=== PATIENT | female | born 1995 | race Caucasian/White ===

== ENCOUNTER 2017-07-31 16:03 | Outpatient (CLI) | payer OTHER ==
[~2017-07-31] VITALS: Ht 165.1 cm; Wt 94.9 kg
[~2017-07-31 16:03] MED LIST: CALC300T34
[2017-07-31 16:34] LABS: URINE BLOOD (Dip) POC Negative (NEGATIVE)
[2017-07-31 16:41] VITALS: BP 130/75; PULSE 93; RESP 18; Ht 165.1 cm; Wt 94.9 kg
[2017-07-31] MEDS ORDERED: PNV11TAB PO (16:42)
--- NOTE | 2017-07-31 17:50 | RADRPT ---
PROCEDURE: US biophysical profile. CLINICAL INDICATION: induced hypertension. TECHNIQUE: Multiple sonographic images of the uterus were obtained. The images were revi ewed on a PACS workstation. COMPARISON: No prior studies are available for comparison. FINDINGS: There is a single live intrauterine gestation. heart rate is 144 beats per minute. The position is cephalic. The placenta is fundal posterior grade II with no abruption or previa. The DAWSON is 14.4 cm. (Normal = 5-20 cm.) Breathing Movement: 2 Gross Body Movement: 2 Tone: 2 Qualitative Amniotic Fluid Volume: 2 TOTAL: 8 IMPRESSION: 1. The biophysical score is 8/8. RPTAT: QQ .Darinel Tidwell MD, MD Date Time Electronically viewed and signed by .Darinel Tidwell MD, on 07/31/2017 17:49 .R/
[2017-07-31 18:05] LABS: ADD UMIC YES; UR ASCORBIC ACID NEGATIVE (NEGATIVE); UR BACTERIA FEW /HPF (NONE SEEN); UR BILIRUBIN (Dip) NEGATIVE (NEGATIVE); UR BLOOD (Dip) NEGATIVE (NEGATIVE); UR CLARITY CLEAR (CLEAR); UR COLOR STRAW (YELLOW); UR GLUCOSE (Dip) NEGATIVE (NEGATIVE); UR KETONES (Dip) NEGATIVE (NEGATIVE); UR LEUKOCYTE ESTERASE (Dip) 3+ Leu/ul (NEGATIVE); UR NITRITE (Dip) NEGATIVE (NEGATIVE); UR RBC 1 /HPF (0-5); UR SPECIFIC GRAVITY (Dip) 1.004 (1.003-1.030); UR SQUAMOUS EPITHELIAL CELL FEW /HPF (FEW); UR TOTAL PROTEIN (Dip) NEGATIVE (NEGATIVE); UR UROBILINOGEN (Dip) NEGATIVE (NEGATIVE)
--- NOTE | 2017-07-31 18:23 | PN ---
Triage Information Date/Time Reason for visit: Hand numness Weeks of Gestation 37 /Para 1/0 Diabetes: none Hypertention: none Objective Vital Signs Date Time Temp Pulse Resp B/P Pulse Ox O2 Delivery O2 Flow Rate FiO2 07/31/17 16:41 98.3 93 18 130/75 Heart Rate: 140's Contractions: None Results/Medications Results 24 hrs Laboratory Tests Test 07/31/17 16:30 07/31/17 16:36 Urine Color STRAW Urine Clarity CLEAR Urine pH 7.0 Urine Specific [place] 1.004 Urine Ketones NEGATIVE Urine Nitrite NEGATIVE Urine Bilirubin NEGATIVE Urine Urobilinogen NEGATIVE Urine Leukocyte Esterase 3+ H Urine Microscopic RBC 1 Urine Microscopic WBC 5 Urine Squamous Epithelial Cells FEW Urine Bacteria FEW A Urine Hemoglobin NEGATIVE Urine Glucose NEGATIVE Urine Total Protein NEGATIVE Bedside Urine pH (LAB) 7.0 Bedside Urine Protein (LAB) Negative Bedside Urine Glucose (UA) Negative Bedside Urine Ketones (LAB) Negative Bedside Urine Blood Negative Bedside Urine Nitrite (LAB) Negative Bedside Urine Leukocyte Esterase (L 2+ H Disposition: Discharge Assessment/Plan Mode has no symptoms at this time BPP 03/10 Exam WNL Discharged with precautions DORIS MOSHER M.D. Jul 31, 2017 18:23
--- NOTE | 2017-07-31 18:31 | TRIAGE ---
OB Triage Datetime Report Generated by CPN: 07/31/2017 18:31 Datetime: 07/31/2017 18:17 Stage of : OB Triage Datetime: 07/31/2017 18:08 Stage of : OB Triage Datetime: 07/31/2017 17:45 Labor Evaluation Frequency: 0 Monitor Mode: External Pattern: Normal: <= 5 Contractions in 10 Minutes Resting Tone [place]: Relaxed Heart Rate FHR Baseline Rate: 125 Monitor Mode: External US Variability: Moderate 6-25 bpm Accelerations: 10X10 Decelerations: None Category: Category I Pain Assessment Pain Scale: 0 Pain Presence: None/Denies Pain Type: N/A Pain Goal: 3 Pain Relief Measures: Comfort Measures Datetime: 07/31/2017 17:16 Stage of : OB Triage Datetime: 07/31/2017 17:11 Stage of : OB Triage Datetime: 07/31/2017 16:49 Stage of : OB Triage Datetime: 07/31/2017 16:25 Stage of : OB Triage Assessment Type: Triage Maternal Assessment Level of Consciousness: Fully Conscious DTR's/Clonus: DTRs 2+; No Clonus Headache: Denies Blurred Vision: No Respiratory Effort: Unlabored; Regular Rhythm; Equal Expansion Breath Sounds, Left: Clear and Equal Breath Sounds, Right: Clear and Equal Nausea/Vomiting: Denies RUQ Epigastric Pain: Denies Facial Edema: None Temperature Route: Axillary Fall Risk Assessment History of Falling: (0) No Secondary Diagnosis: (0) No Ambulatory Aid: (0) Bedrest/Nurse Assist IV Therapy: (0) No Gait: (0) Normal/Bedrest/Immobile Mental Status: (0) Oriented to Own Ability Fall Score: 0 Fall Risk Score Definition: No Risk: No action required Labor Evaluation Frequency: 0 Monitor Mode: External Pattern: Normal: <= 5 Contractions in 10 Minutes Resting Tone [place]: Relaxed Heart Rate FHR Baseline Rate: 135 Monitor Mode: External US Variability: Moderate 6-25 bpm Accelerations: None Decelerations: None Pain Assessment Pain Scale: 0 Pain Presence: None/Denies Pain Type: N/A Pain Goal: 3 Pain Relief Measures: Comfort Measures Datetime: 07/31/2017 16:24 EGA: 36.6 Datetime: 07/31/2017 16:23 Time of Arrival: 07/31/2017 16:00 Arrived By: Ambulatory Arrived From: Home Chief Complaint: C/O RT HAND NUMBNESS WEARING GLOVES. DENIES LEAKING, BLEEDING OR UC'S Movement: Present Contractions: Denies/Absent Rupture of Membranes: Denies Vaginal Bleeding: None Vaginal Discharge: Denies Recent Sexual Intercouse: Denies Abdominal Trauma: Not Applicable Patient Complaints: None Time Provider Notified: 07/31/2017 16:50 Provider Notified: jaquan (Annotations: Data stored by CPN on behalf of user) Initial Plan: MONITOR,BPP
== END 2017-07-31 18:25 | disposition home or self-care (01) ==
LOC: OBT 16:03 → L-D 16:05 → OBT 18:25
PROVIDERS: ATTEND Specialist
DX: O26.893 Other specified pregnancy related conditions, third trimester (principal); Z3A.37 37 weeks gestation of pregnancy
CPT/HCPCS: 76818; 81001; 81003

== ENCOUNTER 2018-02-28 13:01 | Emergency (ER) | END 2018-02-28 15:18 | disposition home or self-care (01) ==